=== PATIENT | male | born 1975 | race Caucasian/White ===

== ENCOUNTER 2020-12-13 12:08 | Inpatient (IN) | payer OTHER, MEDICAID, SELFPAY ==
[2020-12-13] VITALS (37 sets, daily range): BP systolic 119–176; BP diastolic 70–111; PULSE 62–90; RESP 16–38; TEMP 36.2–37.9; O2SAT 92–98; BMI 19.4
--- NOTE | 2020-12-13 12:14 | DI.RAD.S_ITS ---
PROCEDURE: XR CHEST 1V INDICATIONS: chest pain TECHNIQUE: One view of the chest was acquired. COMPARISON: None. FINDINGS: Surgical changes and devices: None. Lungs and pleura: Large right-sided pneumothorax. There is slight shift of the mediastinum to left. Mediastinum: Mediastinal contours appear normal. Heart size is normal. Bones and chest wall: No suspicious bony lesions. Overlying soft tissues appear unremarkable. IMPRESSION: Large right-sided pneumothorax with slight shift of the mediastinum to the left concerning for pneumothorax under tension. Findings discussed with Dr. Vizcarra on December 13, 2020 at 1311 hours. Dictated by: Eileen Hernandez MD, PhD on 12/13/2020 at 13:11 Approved by: Eileen Hernandez MD, PhD on 12/13/2020 at 13:14
[2020-12-13 12:49] LABS: Add Manual Diff / Slide Review NO; Basophils Absolute Auto 0 /uL (0-100); Basophils Percent Auto 0.2 % (0-2); Eosinophils Absolute Auto 0 /uL (0-450); Eosinophils Percent Auto 0.2 % (2-4); Hematocrit 44.2 % (41-53); Hemoglobin 15.1 g/dL (13.5-17.5); Lymphocytes Absolute Auto 1600 /uL (1100-4500); Lymphocytes Percent Auto 11.6 % (25-40); Mean Corpuscular HGB Conc 34.2 % (30-36); Mean Corpuscular Hemoglobin 31.1 PG (26-34); Mean Corpuscular Volume 90.9 fL (80-100); Monocytes Absolute Auto 1000 /uL (0-900); Neutrophils Absolute Auto 11300 /uL (1500-7000); Platelet Count 311 X10^3/uL (150-400); Red Blood Cell Count 4.86 X10^6/uL (4.5-5.9); Red Cell Distribution Width 13.4 % (11.6-14.8)
[2020-12-13 12:56] LABS: Prothrombin Time 11.9 SECONDS (10.1-12.7)
[2020-12-13 12:59] LABS: PTT Partial Thromboplastin Tim 30 SECONDS (26.4-36.2)
--- NOTE | 2020-12-13 13:02 | ED.CHESTPAIN ---
HPI - Chest Pain General Chief Complaint: Chest Pain Stated Complaint: Feels like someone is standing on chest Time Seen by Provider: 12/13/20 12:26 Source: patient Mode of arrival: Ambulatory Limitations: no limitations History of Present Illness HPI narrative: Patient is a 45-year-old male who presents with chest pain. He says actually started yesterday he vapes on a regular basis he was vaping yesterday around 1:00 p.m. when he coughed pretty hard and instantly had a severe chest pain. He was able to calm himself down he went to sleep with his hands on his sternum and woke up still with pain at which point he decided to come to the ER for evaluation. He denies any dizziness or lightheadedness he is having some shortness of breath but while sitting in the emergency department overall feels better. Related Data Home Medications Medication Instructions Recorded Confirmed No Known Home Medications 12/13/20 12/13/20 Allergies Allergy/AdvReac Type Severity Reaction Status Date / Time Penicillins Allergy Verified 12/13/20 12:21 Review of Systems Review of Systems ROS Unobtainable: All systems reviewed & are unremarkable except as noted in HPI and below Constitutional Constitutional: Denies chills, Denies fever(s), Denies lethargy and Denies weakness Cardiovascular Cardiovascular: Reports as per HPI, Reports chest pain, Denies syncope, Denies dyspnea and Denies dyspnea on exertion Respiratory Respiratory: Denies cough, Denies dyspnea, Denies dyspnea on exertion and Denies wheezing Gastrointestinal Gastrointestinal: Denies abdominal pain, Denies change in bowel habits, Denies diarrhea, Denies nausea and Denies vomiting Musculoskeletal Musculoskeletal: Denies back pain, Denies myalgias and Denies arthralgias Integumentary/Breasts Skin/Breast: Denies pruritus, Denies erythema, Denies rash and Denies wounds Neurologic Neurologic: Denies syncope and Denies weakness Allergic/Immunologic Allergic/Immunologic: Denies wheezing Patient History Medical History Vapes nicotine containing substance Social History household members: family Smoking Status: Current every day smoker Smoking Status: Current every day smoker tobacco type: vaping alcohol intake frequency: 0-2 drinks per day Substance Use Type: does not use Exam Initial Vital Signs Initial Vital Signs: Vital Signs Temperature 97.2 F L 12/13/20 12:10 Pulse Rate 90 12/13/20 12:10 Respiratory Rate 16 12/13/20 12:10 Blood Pressure 171/111 H 12/13/20 12:10 Pulse Oximetry 94 12/13/20 12:10 GENERAL: Thin male and in no acute distress. HEENT: Head atraumatic,EOMI, pupils reactive, face symmetric, moist mucous membranes CARDIOVASCULAR: Regular rate and rhythm without murmurs, rubs or gallops. RESPIRATORY: Decreased breath sounds on right no respiratory distress speaks in full sentences bilaterally ABDOMEN: Soft, nontender. Normoactive bowel sounds all 4 quadrants. No guarding or rebound. EXTREMITIES: Normal range of motion, no clubbing or edema. Neurovascularly intact NEUROLOGICAL: Alert and oriented x4.Normal gait and speech. Cranial nerves II through XII grossly intact. SKIN: Warm, dry, no laceration, no petechiae, no rashes or lesions. Procedures Chest Tube Chest Tube 1: Chest Tube Location: right Size of Tube (cm): 28 Chest Tube Prep: Yes sterile drapes applied and other Local Anesthetic: lidocaine 1% and with epi Amount of anesthesia used (mL): 10 Incision Made With: #11 blade Post Procedure: sutured to skin Tube Drainage: none Amount of initial drainage (mL): 0 Post Procedure CXR?: Yes Patient Tolerated Procedure: Yes Procedural Sedation Consent signed: Yes Time out performed: Yes Indication: other (chest tube) Preparation: court monitor applied, pulse oximeter, capnometry used and supplemental O2 applied IV Propofol dose (mg): 90 Intraservice time/total sedation time (min): 20 ED Sedation Level: Moderate (Concious) Patient Tolerated Procedure: Well Complications: none Course Orders Ordered: ED Orders 12/13/20 12:14 XR chest 1V Stat 12/13/20 12:19 EKG-12 Lead Stat 12/13/20 12:35 Complete Blood Count AUTO DIFF Stat Comprehensive Metabolic Panel Stat Lipase Stat Partial Thromboplastin Time Stat Prothrombin Time INR Stat Troponin & CK Cardiac Panel Stat 12/13/20 12:56 COVID19 Stat 12/13/20 13:32 XR chest 1V Stat Acetaminophen (Acetaminophen 325 Mg Tablet) 650 mg PO Q6HR DAWIT Diphenhydramine HCl (Diphenhydramine 50 Mg/Ml Vial) 25 mg IV Q6HR PRN PRN Reason: Itching Docusate Sodium (Docusate 100 Mg Capsule) 100 mg PO BID PRN PRN Reason: Constipation Enoxaparin Sodium (Enoxaparin 40 Mg/0.4 Ml Syringe) 40 mg SUBCUT DAILY [facility] Ketorolac Tromethamine (Ketorolac 30 Mg/Ml Vial) 30 mg IV Q6HR PRN PRN Reason: Pain, Moderate (4-6) Stop: 12/18/20 14:03 Naloxone HCl (Naloxone 0.4 Mg/Ml Vial) 0.2 mg IV Q2MIN PRN PRN Reason: Opiate Reversal Nicotine (Nicotine 21 Mg Patch) 21 mg TOP DAILY [facility] Ondansetron HCl (Ondansetron 4 Mg/2 Ml Inj) 4 mg IV Q4HR PRN PRN Reason: Nausea And Vomiting Oxycodone HCl (Oxycodone Ir 5 Mg Tablet) 5 mg PO Q6HR PRN PRN Reason: Pain, Moderate (4-6) Sennosides (Sennosides 8.6 Mg Tablet) 17.2 mg PO DAILY DAWIT Discontinued Medications Hydromorphone HCl (Hydromorphone 0.5 Mg Inj) 0.5 mg IV NOW ONE Stop: 12/13/20 13:58 Last Admin: 12/13/20 13:58 Dose: 0.5 mg Documented by: CASPER Sodium Chloride (Normal Saline 0.9%) 1,000 mls @ 150 mls/hr IV BOLUS ONE Stop: 12/13/20 19:47 Last Infusion: 12/13/20 14:50 Dose: 150 mls/hr Documented by: Admin: 12/13/20 13:15 Dose: 150 mls/hr Documented by: CASPER Ketorolac Tromethamine (Ketorolac 60 Mg/2 Ml Vial) 30 mg IV NOW ONE Stop: 12/13/20 14:15 Last Admin: 12/13/20 14:25 Dose: 30 mg Documented by: CASPER Propofol (Propofol 200 Mg/20 Ml Vial) 65 mg 1 mg/kg (65 mg) IV NOW ONE Stop: 12/13/20 13:01 Last Admin: 12/13/20 13:21 Dose: 65 mg Documented by: CASPER Vital Signs Vital signs: Vital Signs - 8 hr 12/13/20 12:10 12/13/20 12:25 12/13/20 12:30 Temperature 97.2 F L Pulse Rate 90 83 75 Respiratory Rate 16 31 H Blood Pressure 171/111 H 164/102 H 170/91 H Pulse Oximetry 94 94 93 12/13/20 12:35 12/13/20 12:40 12/13/20 12:45 Temperature Pulse Rate 79 84 75 Respiratory Rate 28 H 32 H 32 H Blood Pressure Pulse Oximetry 93 94 95 12/13/20 12:50 12/13/20 12:55 12/13/20 13:00 Temperature Pulse Rate 80 83 79 Respiratory Rate 28 H 38 H 33 H Blood Pressure Pulse Oximetry 94 95 93 12/13/20 13:02 12/13/20 13:05 12/13/20 13:10 Temperature Pulse Rate 84 78 82 Respiratory Rate 30 H 31 H 29 H Blood Pressure 166/105 H Pulse Oximetry 94 94 93 12/13/20 13:15 12/13/20 13:16 12/13/20 13:20 Temperature Pulse Rate 79 81 81 Respiratory Rate 25 H 28 H 33 H Blood Pressure 176/111 H 166/102 H Pulse Oximetry 93 93 94 12/13/20 13:25 12/13/20 13:30 12/13/20 13:31 Temperature Pulse Rate 85 76 74 Respiratory Rate 25 H 36 H 33 H Blood Pressure 168/81 H 133/89 Pulse Oximetry 93 97 95 12/13/20 13:35 12/13/20 13:36 12/13/20 13:40 Temperature Pulse Rate 65 62 70 Respiratory Rate 30 H 32 H 28 H Blood Pressure 119/70 138/79 Pulse Oximetry 96 95 93 12/13/20 13:45 12/13/20 13:50 Temperature Pulse Rate 71 71 Respiratory Rate 36 H 37 H Blood Pressure 151/87 H 147/94 H Pulse Oximetry 94 92 MDM - Chest Pain Lab Data Attestation: I reviewed the patient's lab results. Result diagrams: 12/13/20 12:35 12/13/20 12:35 Labs: Lab Results 12/13/20 12/13/20 12/13/20 Range/Units 12:35 12:35 12:35 WBC 14.0 H (4.5-11.0) X10^3/uL RBC 4.86 (4.5-5.9) X10^6/uL Hgb 15.1 (13.5-17.5) g/dL Hct 44.2 (41-53) % MCV 90.9 (80-100) fL MCH 31.1 (26-34) PG MCHC 34.2 (30-36) % RDW 13.4 (11.6-14.8) % Plt Count 311 (150-400) X10^3/uL Neut % (Auto) 81.0 H (50-75) % Lymph % (Auto) 11.6 L (25-40) % [place] % (Auto) 7.0 (3-14) % Eos % (Auto) 0.2 L (2-4) % Baso % (Auto) 0.2 (0-2) % Neut # (Auto) 19481 H (9947-2472) /uL Lymph # (Auto) 1600 (1874-5601) /uL [place] # (Auto) 1000 H (0-900) /uL Eos # (Auto) 0 (0-450) /uL Baso # (Auto) 0 (0-100) /uL PT 11.9 (10.1-12.7) SECONDS INR 1.0 (0.9-1.3) APTT 30 (26.4-36.2) SECONDS Sodium 137 (137-145) mmol/L Potassium 3.9 (3.4-5.1) mmol/L Chloride 105 (98-107) mmol/L Carbon Dioxide 22 (22-32) mmol/L BUN 13 (9-20) mg/dL Creatinine 0.74 (0.66-1.25) mg/dL Estimated GFR > 60.0 (>60) mL/min BUN/Creatinine Ratio 17.6 (6-22) Glucose 109 H (70-100) mg/dL Calcium 9.5 (8.4-10.2) mg/dL Total Bilirubin 0.5 (0.2-1.3) mg/dL AST 23 (17-59) IU/L ALT 15 (<50) IU/L Alkaline Phosphatase 78 (38-126) U/L Total Creatine Kinase 151 (55-170) U/L CK-MB (CK-2) 2.17 (<2.37) ng/mL CK-MB (CK-2) Rel Index 1.4 L (1.5-5.0) % Troponin I < 0.012 (0.01-0.034) ng/mL Total Protein 7.7 (6.3-8.2) g/dL Albumin 4.7 (3.5-5.0) g/dL Globulin 3.0 (1.7-4.1) g/dL Albumin/Globulin Ratio 1.6 (1.0-2.8) Lipase 21 L (23-300) U/L SARS-CoV-2 (PCR) (Negative) 12/13/20 Range/Units 12:56 WBC (4.5-11.0) X10^3/uL RBC (4.5-5.9) X10^6/uL Hgb (13.5-17.5) g/dL Hct (41-53) % MCV (80-100) fL MCH (26-34) PG MCHC (30-36) % RDW (11.6-14.8) % Plt Count (150-400) X10^3/uL Neut % (Auto) (50-75) % Lymph % (Auto) (25-40) % [place] % (Auto) (3-14) % Eos % (Auto) (2-4) % Baso % (Auto) (0-2) % Neut # (Auto) (2562-0926) /uL Lymph # (Auto) (2439-4163) /uL [place] # (Auto) (0-900) /uL Eos # (Auto) (0-450) /uL Baso # (Auto) (0-100) /uL PT (10.1-12.7) SECONDS INR (0.9-1.3) APTT (26.4-36.2) SECONDS Sodium (137-145) mmol/L Potassium (3.4-5.1) mmol/L Chloride (98-107) mmol/L Carbon Dioxide (22-32) mmol/L BUN (9-20) mg/dL Creatinine (0.66-1.25) mg/dL Estimated GFR (>60) mL/min BUN/Creatinine Ratio (6-22) Glucose (70-100) mg/dL Calcium (8.4-10.2) mg/dL Total Bilirubin (0.2-1.3) mg/dL AST (17-59) IU/L ALT (<50) IU/L Alkaline Phosphatase (38-126) U/L Total Creatine Kinase (55-170) U/L CK-MB (CK-2) (<2.37) ng/mL CK-MB (CK-2) Rel Index (1.5-5.0) % Troponin I (0.01-0.034) ng/mL Total Protein (6.3-8.2) g/dL Albumin (3.5-5.0) g/dL Globulin (1.7-4.1) g/dL Albumin/Globulin Ratio (1.0-2.8) Lipase (23-300) U/L SARS-CoV-2 (PCR) Negative (Negative) Imaging Data Chest x-ray: Radiologist's Impression: PROCEDURE: XR CHEST 1V INDICATIONS: chest pain TECHNIQUE: One view of the chest was acquired. COMPARISON: None. FINDINGS: Surgical changes and devices: None. Lungs and pleura: Large right-sided pneumothorax. There is slight shift of the mediastinum to left. Mediastinum: Mediastinal contours appear normal. Heart size is normal. Bones and chest wall: No suspicious bony lesions. Overlying soft tissues appear unremarkable. IMPRESSION: Large right-sided pneumothorax with slight shift of the mediastinum to the left concerning for pneumothorax under tension. Findings discussed with Dr. Vizcarra on December 13, 2020 at 1311 hours. Dictated by: Eileen Hernandez MD, PhD on 12/13/2020 at 13:11 Chest x-ray 2. : Radiologist's Impression: PROCEDURE: XR CHEST 1V INDICATIONS: post chest tube TECHNIQUE: One view of the chest was acquired. COMPARISON: [facility], XR CHEST 1V, 12/13/2020, 12:42. FINDINGS: Surgical changes and devices: None. Lungs and pleura: There is a large right pneumothorax with near complete collapse of the right lung. No findings of tension. The left lung and pleural space are clear. Mediastinum: Mediastinal structures are at midline in their appropriate position with no evidence of shift. Heart size is normal. Bones and chest wall: No suspicious bony lesions. Overlying soft tissues appear unremarkable. IMPRESSION: Large right pneumothorax with no evidence of tension currently. Dictated by: Andre Tran M.D. on 12/13/2020 at 13:45 ECG Data Attestation: I personally reviewed and interpreted this ECG as follows: Prior ECG tracings: not available for review Interpretation: Sinus rhythm rate 74T-wave inversion noted in lead [address] changes computer states that arm leads were reversed P-wave inversions are noted in lead 1 and aVL as well respiratory therapist states that he double checked and they are not reversed. MDM Narrative Medical decision making narrative: The patient is found to have spontaneous large right-sided pneumothorax. At procedure sedation and chest tube placed with full resolution. Patient is complaining of some discomfort at the chest tube site but chest tube remains in place. Dr. Salas updated patient's symptoms test results and agrees with admission. Discharge Plan Departure Patient Disposition: Admitted As Inpatient Clinical Impression: Pneumothorax Qualifiers: Pneumothorax type: spontaneous, primary Qualified Code(s): J93.11 - Primary spontaneous pneumothorax Admit Date/Time: 12/13/20 13:54 Admit Provider: Tanna Lambert
[2020-12-13 13:05] LABS: Alanine Aminotransferase 15 IU/L (<50); Albumin 4.7 g/dL (3.5-5.0); Albumin Globulin Ratio 1.6 (1.0-2.8); Alkaline Phosphatase 78 U/L (38-126); Aspartate Aminotransferase 23 IU/L (17-59); BUN Creatinine Ratio 17.6 (6-22); Bilirubin Total 0.5 mg/dL (0.2-1.3); Blood Urea Nitrogen 13 mg/dL (9-20); Calcium 9.5 mg/dL (8.4-10.2); Carbon Dioxide 22 mmol/L (22-32); Chloride 105 mmol/L (98-107); Creatine Kinase 151 U/L (55-170); Estimated Glomerular Filt Rate > 60.0 mL/min (>60); Glucose 109 mg/dL (70-100); HEMOLYSIS < 15 (0-50); Lipase 21 U/L (23-300); Potassium 3.9 mmol/L (3.4-5.1); Sodium 137 mmol/L (137-145); Total Protein 7.7 g/dL (6.3-8.2)
[2020-12-13 13:15] LABS: Troponin I < 0.012 ng/mL (0.01-0.034)
[2020-12-13] MEDS: SODIUM CHLORIDE 0.9% 1,000 ML 150 ML IV (13:15)
[2020-12-13 13:19] LABS: COVID19 -Nasal RAPID Negative (Negative)
[2020-12-13 13:20] LABS: CKMB % Relative Index 1.4 % (1.5-5.0); Creatine Kinase MB 2.17 ng/mL (<2.37)
[2020-12-13] MEDS: propofoL 200 MG/20 ML VIAL 65 MG IV (13:21)
[2020-12-13] MEDS: LIDOCAINE 1% W/EPI 30 ML (13:25)
--- NOTE | 2020-12-13 13:32 | DI.RAD.S_ITS ---
PROCEDURE: XR CHEST 1V INDICATIONS: post chest tube TECHNIQUE: One view of the chest was acquired. COMPARISON: [facility], CR, XR CHEST 1V, 12/13/2020, 12:42. FINDINGS: Surgical changes and devices: None. Lungs and pleura: There is a large right pneumothorax with near complete collapse of the right lung. No findings of tension. The left lung and pleural space are clear. Mediastinum: Mediastinal structures are at midline in their appropriate position with no evidence of shift. Heart size is normal. Bones and chest wall: No suspicious bony lesions. Overlying soft tissues appear unremarkable. IMPRESSION: Large right pneumothorax with no evidence of tension currently. Dictated by: Andre Tran M.D. on 12/13/2020 at 13:45 Approved by: Andre Tran M.D. on 12/13/2020 at 13:46
[2020-12-13] MEDS: HYDROMORPHONE 0.5 MG INJ (13:35)
[2020-12-13] MEDS: HYDROMORPHONE 0.5 MG INJ IV (13:58)
[2020-12-13] MEDS: KETOROLAC 60 MG/2 ML VIAL 30 MG IV (14:25)
[2020-12-13] MEDS: ACETAMINOPHEN 325 MG TABLET 650 MG PO (18:59)
[2020-12-13] MEDS: NICOTINE 21 MG PATCH TOP (19:00)
--- NOTE | 2020-12-13 20:10 | PC.NURSE ---
Critical care time related to procedural sedation and chest tube placement.
[2020-12-13] MEDS: OXYCODONE IR 5 MG TABLET PO (21:19)
[2020-12-14] MEDS: ACETAMINOPHEN 325 MG TABLET 650 MG PO ×5 (00:12→23:41)
[2020-12-14 03:21] VITALS: BP 126/63; PULSE 56; RESP 18; TEMP 36.9; O2SAT 99
[2020-12-14] MEDS: OXYCODONE IR 5 MG TABLET PO ×2 (06:24→13:26)
[2020-12-14 08:33] VITALS: BP 132/92; PULSE 62; RESP 18; TEMP 37.2; O2SAT 96
--- NOTE | 2020-12-14 08:52 | P.HP_ITS ---
History of Present Illness History of Present Illness Date Patient Seen: 12/14/20 Time Patient Seen: 08:52 Chief complaint: Feels like someone is standing on chest Narrative: This is a 45-year-old man who presented tot he ER with chest pain last night. He is an active everyday smoker and vaper. He says the pain started on Friday. He reports that he vapes on a regular basis he was vaping Friday around 1:00 p.m. when he coughed hard and suddenly had a severe chest pain. He reports that he was able to calm himself down he went to sleep with his hands on his sternum and woke up still with pain at which point he decided to come to the ER for evaluation. In the ER he was found to have a large pneumothorax on the right, and a chest tube was placed, with reinflation of the lung. Overnight, he has been weaned off of oxygen, and has required minimal yue n medication. He feels like his breathing is much better, and his chest pain has basically resolved, with the exception of pain at the chest tube insertion site. He has a nicotine patch, and denies any desire for cigarette at this point ROS: Constitutional: Denies chills, Denies fever(s), Denies lethargy and Denies weakness Cardiovascular: Reports as per HPI, Reports improved chest pain; reports pain at chest tube site, Denies syncope, Denies dyspnea and Denies dyspnea on exertion Respiratory: Denies cough, Denies dyspnea, Denies dyspnea on exertion and Denies wheezing Gastrointestinal: Denies abdominal pain, Denies change in bowel habits, Denies diarrhea, Denies nausea and Denies vomiting Musculoskeletal: Denies back pain, Denies myalgias and Denies arthralgias Skin/Breast: Denies pruritus, Denies erythema, Denies rash and Denies wounds Neurologic: Denies syncope and Denies weakness Allergic/Immunologic: Denies wheezing PE: GENERAL: Alert, comfortable. Appears stated age. Answers questions promptly and appropriately. Vital signs noted. HENT: Normocephalic, atraumatic. Hearing intact. EYES: Conjunctiva pink, sclera white, no periorbital swelling. CARDIOVASCULAR: Regular rate. No pedal edema. RESPIRATORY: Non-tachypneic, breathing comfortably on room air. Chest tube in place and secure without kinks, no sign of a leak, minimal tidaling on inspiration with suction off. GASTROINTESTINAL: Abdomen soft and non-distended GENITALURINARY: No flank tenderness. MUSCULOSKELETAL: Equal tone and mass bilaterally. SKIN: Warm, dry, soft, appropriate color for ethnicity. No other lesions, rashes, or wounds. NEURO: Alert and Oriented X 3. No gross sensory deficits, or cognitive issues. PSYCH: Appropriate affect and mood. Patient History Medical History Vapes nicotine containing substance Family & Social History Social History: household members family Prior Living Arrangements House Safety & Behavioral: Feels Safe in Current Yes Environment Been Physically Hurt or No Threatened By a Person Suicidal Ideation Description None Tobacco & Substance use: Tobacco type cigarettes,e-cigarettes Smoking Status Current every day smoker Smoking packs per day 0.5 alcohol intake frequency holiday/special occasion Substance Use Type does not use Meds Home Medications and Allergies Home Medications Medication Instructions Recorded Confirmed Type No Known Home Medications 12/13/20 12/13/20 History Allergies Allergy/AdvReac Type Severity Reaction Status Date / Time Penicillins Allergy Verified 12/13/20 12:21 Exam Vital Signs (past 8 hours): - 12/14/20 03:21 Temperature 98.5 F Pulse Rate 56 L Respiratory Rate 18 Blood Pressure 126/63 Pulse Oximetry 99 Oxygen Delivery Method Nasal Cannula Oxygen Flow Rate 0 Objective Imaging Chest x-ray: Radiologist's impression: Chest x-ray: Radiologist's Impression: PROCEDURE: XR CHEST 1V INDICATIONS: chest pain TECHNIQUE: One view of the chest was acquired. COMPARISON: None. FINDINGS: Surgical changes and devices: None. Lungs and pleura: Large right-sided pneumothorax. There is slight shift of the mediastinum to left. Mediastinum: Mediastinal contours appear normal. Heart size is normal. Bones and chest wall: No suspicious bony lesions. Overlying soft tissues appear unremarkable. IMPRESSION: Large right-sided pneumothorax with slight shift of the mediastinum to the left concerning for pneumothorax under tension. Findings discussed with Dr. Vizcarra on December 13, 2020 at 1311 hours. Dictated by: Eileen Hernandez MD, PhD on 12/13/2020 at 13:11 Chest x-ray 2. : Radiologist's Impression: PROCEDURE: XR CHEST 1V INDICATIONS: post chest tube TECHNIQUE: One view of the chest was acquired. [facility], 12/13/2020, 12:42. FINDINGS: Surgical changes and devices: None. Lungs and pleura: There is a large right pneumothorax with near complete collapse of the right lung. No findings of tension. The left lung and pleural space are clear. Mediastinum: Mediastinal structures are at midline in their appropriate position with no evidence of shift. Heart size is normal. Bones and chest wall: No suspicious bony lesions. Overlying soft tissues appear unremarkable. IMPRESSION: Large right pneumothorax with no evidence of tension currently. Dictated by: Andre Tran M.D. on 12/13/2020 at 13:45 ECG Data Attestation: I personally reviewed and interpreted this ECG as follows: Prior ECG tracings: not available for review Interpretation: Sinus rhythm rate 74T-wave inversion noted in lead [address] changes computer states that arm leads were reversed P-wave inversions are noted in lead 1 and aVL as well respiratory therapist states that he double checked and they are not reversed. Labs Result Diagrams: 12/13/20 12:35 12/13/20 12:35 Labs: Laboratory Results - last 24 hr 12/13/20 12/13/20 12/13/20 12:35 12:35 12:35 WBC 14.0 H RBC 4.86 Hgb 15.1 Hct 44.2 MCV 90.9 MCH 31.1 MCHC 34.2 RDW 13.4 Plt Count 311 Neut % (Auto) 81.0 H Lymph % (Auto) 11.6 L [place] % (Auto) 7.0 Eos % (Auto) 0.2 L Baso % (Auto) 0.2 Neut # (Auto) 89044 H Lymph # (Auto) 1600 [place] # (Auto) 1000 H Eos # (Auto) 0 Baso # (Auto) 0 PT 11.9 INR 1.0 APTT 30 Sodium 137 Potassium 3.9 Chloride 105 Carbon Dioxide 22 BUN 13 Creatinine 0.74 Estimated GFR > 60.0 BUN/Creatinine Ratio 17.6 Glucose 109 H Calcium 9.5 Total Bilirubin 0.5 AST 23 ALT 15 Alkaline Phosphatase 78 Total Creatine Kinase 151 CK-MB (CK-2) 2.17 CK-MB (CK-2) Rel Index 1.4 L Troponin I < 0.012 Total Protein 7.7 Albumin 4.7 Globulin 3.0 Albumin/Globulin Ratio 1.6 Lipase 21 L SARS-CoV-2 (PCR) 12/13/20 12:56 WBC RBC Hgb Hct MCV MCH MCHC RDW Plt Count Neut % (Auto) Lymph % (Auto) [place] % (Auto) Eos % (Auto) Baso % (Auto) Neut # (Auto) Lymph # (Auto) [place] # (Auto) Eos # (Auto) Baso # (Auto) PT INR APTT Sodium Potassium Chloride Carbon Dioxide BUN Creatinine Estimated GFR BUN/Creatinine Ratio Glucose Calcium Total Bilirubin AST ALT Alkaline Phosphatase Total Creatine Kinase CK-MB (CK-2) CK-MB (CK-2) Rel Index Troponin I Total Protein Albumin Globulin Albumin/Globulin Ratio Lipase SARS-CoV-2 (PCR) Negative Assessment & Plan Assessment and plan (1) Smoker: Status: Acute (2) Current every day nicotine vaping: Status: Acute (3) Spontaneous pneumothorax: Status: Acute Assessment & Plan narrative: 11 minutes were spent reviewing his imaging, and labs. 19 minutes were spent with the patient discussing his history, examining him, and evaluating his chest tube. This is a 45-year-old man who is here with a spontaneous pneumothorax. He has well placed chest tube, which seems to be functioning. His pain is well controlled, as well as his nicotine dependence. We will get a chest x-ray at the 24 hour fernando, which is 2 o'clock this afternoon, if the lung is well expanded, we will switch to water seal, and repeat a chest x-ray in 24 hours. I explained to the patient that he can take for 3 days to a week to get the lung to re-expand completely, and if we cannot get it to re-expand, he may need to be transferred for thoracic surgery evaluation and intervention. He is verbalizing understanding and agreement with this plan. Plan: Chest tube management as described above Incentive spirometry, ambulation as tolerated Regular diet Nicotine patch Pain meds as needed COVID-19 COVID-19 status: Negative Result date/Date tested (Pos, Neg/Pending): 12/13/20 Time Spent With Patient Time with patient: 25 - 35 minutes (30) Quality VTE Deep Vein Thrombosis/Pulmonary Embolism Present on Admission: No
[2020-12-14] MEDS: SENNOSIDES 8.6 MG TABLET 17.2 MG PO (08:59)
[2020-12-14] MEDS: NICOTINE 21 MG PATCH TOP (08:59)
[2020-12-14] MEDS: ENOXAPARIN 40 MG/0.4 ML SYRINGE SUBCUT (08:59)
[2020-12-14 11:27] VITALS: BP 147/99; PULSE 55; RESP 16; TEMP 37.6; O2SAT 94
--- NOTE | 2020-12-14 12:50 | CM.IDA ---
Initial DCP Assessment Note Pt is a 45 yo male, resident of [place], arrives to ED with a spontaneous pneumothorax, chest tube placed PCP: No PCP Listed Payer: [facility] RAFI Reviewed chart, met w/patient to introduce role and review DCP. Patient is indp and active at baseline, works as a boat welder and fitter. Patient admits he has been trying to quit smoking for quite some time, Nicoderm nicotine patch has worked in the past, although [facility] does not cover Nicoderm, and the generic version gives patient large skin blisters. Patient hopes to get a Rx for the Nicoderm patch upon DC- relayed this to RN. 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 No needs expected from DC planning team although will remain available in case this changes . SUE Holder Discharge Planning/Care Management CM Discharge Assessment Start: 12/14/20 12:48 Freq: Status: Active Protocol: Document 12/14/20 12:48 DANIE (Rec: 12/14/20 12:49 DANIE [id number]) Discharge Planning Assessment Assigned Traffic Court Magistrate SUE Preez DPOA/Assigned Designee Name family Mariaa Contact Information [phone] Advance Directives? No History Provided By Patient,Medical Record Prior Living Arrangements House Household Members family Type of transporation used prior to Drives own vehicle admit Willing to Return to Facility? No Independent with ADL's Yes Is patient alert and oriented? Yes Barriers to Discharge No Discharge Plan Home Transportation Arrangement family to transport Referrals Initiated None needed
--- NOTE | 2020-12-14 14:00 | DI.RAD.S_ITS ---
PROCEDURE: XR CHEST 1V INDICATIONS: pneumothorax; Interval change TECHNIQUE: One view of the chest was acquired. COMPARISON: [facility], CR, XR CHEST 1V, 12/13/2020, 13:36. [facility], CR, XR CHEST 1V, 12/13/2020, 12:42. FINDINGS: Surgical changes and devices: Chest tube has a vacuum weighted a large right-sided pneumothorax previously present earlier same day. No significant residual AP goal pneumothorax is seen. The lung parenchyma on the right appears mildly edematous, after re-expansion. Mild subcutaneous emphysema noted over the right chest wall.. Lungs and pleura: Lungs are clear. No pleural effusions or pneumothorax. Mediastinum: Mediastinal contours appear normal. Heart size is normal. Bones and chest wall: No suspicious bony lesions. Overlying soft tissues appear unremarkable. IMPRESSION: Maintenance of re-expansion of right lung, by chest tube within the right hemithorax placed earlier today. Resolution of mediastinal shift from right to left, mild post re-expansion alveolar edema noted within the right mid and lower lung. Mild subcutaneous emphysema. Dictated by: Naresh Gaona M.D. on 12/14/2020 at 14:32 Approved by: Naresh Gaona M.D. on 12/14/2020 at 14:33
[2020-12-14 15:50] VITALS: BP 141/89; PULSE 52; RESP 18; TEMP 36.9; O2SAT 97
[2020-12-14] MEDS: KETOROLAC 30 MG/ML VIAL IV ×2 (16:26→22:31)
[2020-12-14 17:50] VITALS: PULSE 69; RESP 16; O2SAT 97
[2020-12-14 19:28] VITALS: BP 142/97; PULSE 60; RESP 20; TEMP 36.4; O2SAT 98
--- NOTE | 2020-12-14 19:41 | PC.NURSE ---
Evening Shift Note- Patient called complaining of feeling hot. checked temp, 98.6 temp noted. Patient and I were unable to find nicotine patch that had been placed earlier today, Patch was replaced with new patch to left upper chest. Patient reports that approx 30 to 45 minutes later starting to feel a little lightheaded/dizzy, sweaty, and warm. Nicotine patch from yesterday was on patients left back shoulder area, that site today is red and raised and the size of the patch. Left upper arm site with light red patch shaped area. Removed patch to left upper chest and called bindery leadperson Dr. Navarrete. Orders given to D/c Nicotine patch.
[2020-12-15] VITALS (9 sets, daily range): BP systolic 134–160; BP diastolic 76–93; PULSE 50–66; RESP 16–20; TEMP 36.5–37.3; O2SAT 95–98
[2020-12-15] MEDS: ACETAMINOPHEN 325 MG TABLET 650 MG PO ×3 (05:48→17:03)
[2020-12-15 06:42] LABS: Add Manual Diff / Slide Review NO; Basophils Absolute Auto 0 /uL (0-100); Basophils Percent Auto 0.3 % (0-2); Eosinophils Absolute Auto 400 /uL (0-450); Eosinophils Percent Auto 3.2 % (2-4); Hematocrit 42.5 % (41-53); Hemoglobin 14.2 g/dL (13.5-17.5); Lymphocytes Absolute Auto 1900 /uL (1100-4500); Lymphocytes Percent Auto 14.4 % (25-40); Mean Corpuscular HGB Conc 33.3 % (30-36); Mean Corpuscular Hemoglobin 30.7 PG (26-34); Mean Corpuscular Volume 92.3 fL (80-100); Monocytes Absolute Auto 1000 /uL (0-900); Monocytes Percent Auto 7.7 % (3-14); Neutrophils Absolute Auto 10000 /uL (1500-7000); Neutrophils Percent Auto 74.4 % (50-75); Platelet Count 259 X10^3/uL (150-400); Red Blood Cell Count 4.61 X10^6/uL (4.5-5.9); Red Cell Distribution Width 13.3 % (11.6-14.8); White Blood Cell Count 13.5 X10^3/uL (4.5-11.0)
[2020-12-15] MEDS: KETOROLAC 30 MG/ML VIAL IV ×3 (07:56→21:56)
[2020-12-15] MEDS: ENOXAPARIN 40 MG/0.4 ML SYRINGE SUBCUT (10:05)
[2020-12-15] MEDS: SENNOSIDES 8.6 MG TABLET 17.2 MG PO (10:06)
--- NOTE | 2020-12-15 10:12 | PM.PN.1 ---
Subjective Subjective Date Patient Seen: 12/15/20 Time Patient Seen: 07:45 Interval history: No acute events over night. Pt denies CP, SOB. Minimal pain at chest tube site. Exam Vital Signs (past 8 hours): - 12/15/20 04:00 12/15/20 08:00 12/15/20 09:14 Temperature 98.6 F 97.7 F Pulse Rate 50 L 58 L 66 Respiratory Rate 16 19 Blood Pressure 134/84 140/76 Pulse Oximetry 98 97 97 Oxygen Delivery Method Room Air Oxygen Flow Rate 0 Narrative Exam Narrative: GENERAL: Alert, comfortable. Answers questions promptly and appropriately. Vital signs noted. HENT: Normocephalic, atraumatic. Hearing intact. EYES: Conjunctiva pink, sclera white, no periorbital swelling. CARDIOVASCULAR: Regular rate. No pedal edema. RESPIRATORY: Non-tachypneic, breathing comfortably on room air. Chest tube in place and tidaling. No apparent leak. Taken off of wall suction during exam. GASTROINTESTINAL: Abdomen soft and non-distended GENITALURINARY: No flank tenderness. MUSCULOSKELETAL: Equal tone and mass bilaterally. SKIN: Warm, dry, soft, appropriate color for ethnicity. No other lesions, rashes, or wounds. NEURO: Alert and Oriented X 3. No gross sensory deficits, or cognitive issues. PSYCH: Appropriate affect and mood. Objective Imaging Chest x-ray: Radiologist's impression: [address] [id number] ReportSigned Patient: Bob Christopher AMR#: [id number]: [id number]:[id number]/Sex: 45 / MDate of Service: 12/14/20Loc: [id number] Number: [id number] Procedure: XR chest 1V Ordering Provider: Tanna Lambert MD PROCEDURE: XR CHEST 1V INDICATIONS: pneumothorax; Interval change TECHNIQUE: One view of the chest was acquired. COMPARISON: [facility], CR, XR CHEST 1V, 12/13/2020, 13:36. [facility], CR, XR CHEST 1V, 12/13/2020, 12:42. FINDINGS: Surgical changes and devices: Chest tube has a vacuum weighted a large right-sided pneumothorax previously present earlier same day. No significant residual AP goal pneumothorax is seen. The lung parenchyma on the right appears mildly edematous, after re-expansion. Mild subcutaneous emphysema noted over the right chest wall.. Lungs and pleura: Lungs are clear. No pleural effusions or pneumothorax. Mediastinum: Mediastinal contours appear normal. Heart size is normal. Bones and chest wall: No suspicious bony lesions. Overlying soft tissues appear unremarkable. IMPRESSION: Maintenance of re-expansion of right lung, by chest tube within the right hemithorax placed earlier today. Resolution of mediastinal shift from right to left, mild post re-expansion alveolar edema noted within the right mid and lower lung. Mild subcutaneous emphysema. Dictated by: Naresh Gaona M.D. on 12/14/2020 at 14:32 Approved by: Naresh Gaona M.D. on 12/14/2020 at 14:33 Labs Result Diagrams: 12/15/20 06:35 12/13/20 12:35 Labs: Laboratory Results - last 24 hr 12/15/20 06:35 WBC 13.5 H RBC 4.61 Hgb 14.2 Hct 42.5 MCV 92.3 MCH 30.7 MCHC 33.3 RDW 13.3 Plt Count 259 Neut % (Auto) 74.4 Lymph % (Auto) 14.4 L [place] % (Auto) 7.7 Eos % (Auto) 3.2 Baso % (Auto) 0.3 Neut # (Auto) 59239 H Lymph # (Auto) 1900 [place] # (Auto) 1000 H Eos # (Auto) 400 Baso # (Auto) 0 PFSH Medical History Vapes nicotine containing substance Social History household members: family Smoking Status: Current every day smoker Assessment & Plan Assessment and plan (1) Spontaneous pneumothorax: Status: Acute (2) Current every day nicotine vaping: Status: Acute (3) Smoker: Status: Acute Assessment & Plan narrative: 4 minutes were spent reviewing his imaging, and labs. 13 minutes were spent with the patient discussing his history, examining him, and evaluating his chest tube. 6 minutes were spent discussing his case with his nurse. This is a 45-year-old man who is here with a spontaneous pneumothorax. He has well placed chest tube, which seems to be functioning. His pain is well controlled, as well as his nicotine dependence. We put his chest tube to water seal this morning, and will get a chest x-ray this afternoon around 2:00 p.m.. If no pneumothorax has developed, we will consider clamping the tube, and possibly removing it tomorrow. Plan: Chest tube to water seal Will get stat chest x-ray, before putting the chest tube back to suction if the patient desats or develops chest pain Chest x-ray at 2:00 p.m. Consider clamping the chest tube tomorrow, and possibly removing it tomorrow or Friday if all continues to go well COVID-19 COVID-19 status: Negative Result date/Date tested (Pos, Neg/Pending): 12/13/20 Time Spent With Patient Time with patient: 15-24 minutes (23) Quality VTE Deep Vein Thrombosis/Pulmonary Embolism Present on Admission: No
[2020-12-15] MEDS: NICOTINE 21 MG PATCH TOP (12:16)
--- NOTE | 2020-12-15 12:24 | PC.NURSE ---
Addendum entered by Ana Couch R.N. 12/15/20 15:04: Around 1400 pt coughed and Jackie water compartment started bubbling. Luckily CXR was ordered for 1400 and obtained successful image. Dr. Lambert called to inform nursing staff that pt has a small pneumothorax still and will need to be placed on suction again. pt made aware. I will give Lauren report and place pt on suction. -20cm h20, continuous suction on medium to high. Original Note: AM Shift. pt AO and receptive to care. Ambulating IND in room and hallways. Right chest tube clamped with hemostat and orders state to stay dry, gauze CDI. Lungs sound clear and diminished, mild pain controlled with toradol. Left forearm PIV flushing. pt experiencing hot flashes which he thinks are d/t lack of nicotine. pt had 21mg nicotine patch ordered yesterday but DC'ed d/t rash and flushing. pt asked for another patch today. I called Dr. Lambert's team which she then prescribed a patch, but 21mg. The patient request to place the pack to curve his current cravings and to call back to request a lower dose. I called the team and have requested 14mg.
--- NOTE | 2020-12-15 12:29 | PC.NURSE ---
Nicotine patch. pt reporting s/s of nicotine withdrawal around 1030 this shift (pt typically vapes during the day). pt had Nicoderm patch on yesterday and it was removed on evening shift due to skin irritation and flushing. pt request a new patch today in hopes it will ease his cravings and hot flashes. I called Dr. Lambert's team and requested a patch, Dr. Lambert prescribed another 21mg patch. pt asking for a lower dose of 14mg. I called Dr. Lambert's team again and the nurse stated that she will send the message on.
[2020-12-15] MEDS: NICOTINE 14 PATCH 14 MG TOP (13:37)
--- NOTE | 2020-12-15 14:00 | DI.RAD.S_ITS ---
PROCEDURE: XR CHEST 1V INDICATIONS: interval change pneumothorax TECHNIQUE: One view of the chest was acquired. COMPARISON: [facility], CR, XR CHEST 1V, 12/14/2020, 13:56. FINDINGS: Surgical changes and devices: Right-sided chest tube position is unchanged. Lungs and pleura: Persistent small right apical pneumothorax is seen slightly increased in size compared to previous study. Extensive bullous disease in right upper lung field is again noted. No left-sided pneumothorax. Mediastinum: Mediastinal contours appear normal. Heart size is normal. Bones and chest wall: No suspicious bony lesions. Extensive right-sided subcutaneous emphysema is seen unchanged from previous day. IMPRESSION: Interval slight increase in size of patient's known right apical pneumothorax. Persistent severe bullous disease in right upper lung field. No left-sided pneumothorax. Dictated by: Jadiel Bishop M.D. on 12/15/2020 at 13:45 Approved by: Jadiel Bishop M.D. on 12/15/2020 at 13:46
[2020-12-16] VITALS (7 sets, daily range): BP systolic 123–154; BP diastolic 78–94; PULSE 52–67; RESP 18–20; TEMP 36.4–37.2; O2SAT 97–99
[2020-12-16] MEDS: ACETAMINOPHEN 325 MG TABLET 650 MG PO ×5 (00:16→23:44)
[2020-12-16 05:29] LABS: Add Manual Diff / Slide Review NO; Basophils Absolute Auto 100 /uL (0-100); Basophils Percent Auto 0.5 % (0-2); Eosinophils Absolute Auto 600 /uL (0-450); Eosinophils Percent Auto 4.3 % (2-4); Hematocrit 40.7 % (41-53); Hemoglobin 13.9 g/dL (13.5-17.5); Lymphocytes Absolute Auto 1600 /uL (1100-4500); Lymphocytes Percent Auto 11.7 % (25-40); Mean Corpuscular HGB Conc 34.1 % (30-36); Mean Corpuscular Volume 90.9 fL (80-100); Monocytes Absolute Auto 800 /uL (0-900); Monocytes Percent Auto 6.1 % (3-14); Neutrophils Absolute Auto 10500 /uL (1500-7000); Neutrophils Percent Auto 77.4 % (50-75); Platelet Count 260 X10^3/uL (150-400); Red Blood Cell Count 4.48 X10^6/uL (4.5-5.9); Red Cell Distribution Width 12.9 % (11.6-14.8); White Blood Cell Count 13.5 X10^3/uL (4.5-11.0)
--- NOTE | 2020-12-16 07:00 | DI.RAD.S_ITS ---
PROCEDURE: XR CHEST 1V INDICATIONS: chest tube, pneumothorax TECHNIQUE: One view of the chest was acquired. COMPARISON: [facility], CR, XR CHEST 1V, 12/13/2020, 13:36. [facility], CR, XR CHEST 1V, 12/13/2020, 12:42. [facility], CR, XR CHEST 1V, 12/14/2020, 13:56. [facility], CR, XR CHEST 1V, 12/15/2020, 14:21. FINDINGS: Surgical changes and devices: Unchanged alignment of right sided chest tube. Lungs and pleura: Persistent right apical pneumothorax not significantly changed from most recent examination. Extensive bullous disease within the right lung is again visualized. No left-sided pneumothorax. Slightly decreased right mid lung opacity. No significant pleural effusion. Mediastinum: Mediastinal contours appear normal. Heart size is normal. Bones and chest wall: No suspicious bony lesions. No significant change in extensive right-sided subcutaneous emphysema. IMPRESSION: No significant change in right apical pneumothorax. Unchanged alignment of right-sided chest tube. Slightly decreased right mid lung opacity. Dictated by: Dwayne Fontanez D.O. on 12/16/2020 at 7:16 Approved by: Dwayne Fontanez D.O. on 12/16/2020 at 7:19
[2020-12-16] MEDS: SENNOSIDES 8.6 MG TABLET 17.2 MG PO (09:32)
[2020-12-16] MEDS: KETOROLAC 30 MG/ML VIAL IV ×3 (09:33→23:49)
[2020-12-16] MEDS: ENOXAPARIN 40 MG/0.4 ML SYRINGE SUBCUT (09:33)
[2020-12-16] MEDS: NICOTINE 14 PATCH 14 MG TOP (10:16)
--- NOTE | 2020-12-16 11:58 | P.PN_ITS ---
Subjective Subjective Date Patient Seen: 12/16/20 Time Patient Seen: 11:58 Interval history: The patient is a gentleman with a spontaneous pneumothorax. Chest tube was placed and he has been on continuous suction at 20 cm of water. No chest pain. Doing a great job with deep breathing. He is a bit anxious about possible surgery. No GI complaints. Never used inhalers. Is tolerating his nicotine patch. Actually requested that he get another because the order had been stopped for some reason inadvertently. He is concerned about elevated cholesterol and re questing a dietary consult. He knows he eats a poor diet he says. Exam Vital Signs (past 8 hours): - 12/16/20 04:26 12/16/20 08:00 12/16/20 10:03 Temperature 98.2 F 97.6 F Pulse Rate 55 L 62 Respiratory Rate 20 18 Blood Pressure 152/92 H 123/78 Pulse Oximetry 98 97 98 Oxygen Delivery Method Room Air Oxygen Flow Rate 0 Narrative Exam Narrative: No apparent distress. Lungs good effort. Equal breath sounds. Some wheezing in the bases is noted on deep inspiration. Heart regular rate and rhythm without murmur gallop. Chest tube as a continuous air leak. Objective Labs Result Diagrams: 12/16/20 05:05 12/13/20 12:35 Labs: Laboratory Results - last 24 hr 12/16/20 05:05 WBC 13.5 H RBC 4.48 L Hgb 13.9 Hct 40.7 L MCV 90.9 MCH 31.0 MCHC 34.1 RDW 12.9 Plt Count 260 Neut % (Auto) 77.4 H Lymph % (Auto) 11.7 L [place] % (Auto) 6.1 Eos % (Auto) 4.3 H Baso % (Auto) 0.5 Neut # (Auto) 67705 H Lymph # (Auto) 1600 [place] # (Auto) 800 Eos # (Auto) 600 H Baso # (Auto) 100 PFSH Medical History Vapes nicotine containing substance Social History household members: family Smoking Status: Current every day smoker Assessment & Plan Assessment & Plan narrative: Doing well. Patient requesting dietary consult because he thinks he has elevated cholesterol. I have ordered labs and a d ietary consult. Increased to suction to 30 cm of water. Talked to him about the possible need for an operation. Told him it would we would probably give him more time to seal before that occurred. I talked to him about a thoracoscopic procedure which would be more likely that an open 1. All questions were answered. Quality VTE Deep Vein Thrombosis/Pulmonary Embolism Present on Admission: No
[2020-12-17] VITALS (7 sets, daily range): BP systolic 134–155; BP diastolic 80–93; PULSE 56–69; RESP 15–20; TEMP 36.3–37.2; O2SAT 96–99
[2020-12-17 05:30] LABS: Add Manual Diff / Slide Review NO; Basophils Absolute Auto 100 /uL (0-100); Basophils Percent Auto 0.8 % (0-2); Eosinophils Absolute Auto 700 /uL (0-450); Eosinophils Percent Auto 5.6 % (2-4); Hematocrit 40.4 % (41-53); Hemoglobin 13.6 g/dL (13.5-17.5); Lymphocytes Absolute Auto 1700 /uL (1100-4500); Lymphocytes Percent Auto 13.8 % (25-40); Mean Corpuscular HGB Conc 33.7 % (30-36); Mean Corpuscular Hemoglobin 30.8 PG (26-34); Mean Corpuscular Volume 91.4 fL (80-100); Monocytes Absolute Auto 1000 /uL (0-900); Neutrophils Absolute Auto 8900 /uL (1500-7000); Neutrophils Percent Auto 71.8 % (50-75); Platelet Count 267 X10^3/uL (150-400); Red Blood Cell Count 4.42 X10^6/uL (4.5-5.9); Red Cell Distribution Width 13.2 % (11.6-14.8); White Blood Cell Count 12.4 X10^3/uL (4.5-11.0)
[2020-12-17 05:56] LABS: Cholesterol 151 mg/dL (140-199); HDL Cholesterol 36 mg/dL (40-60); LDL Cholesterol Calculated 92 mg/dL (<100); Triglycerides 115 mg/dL (35-150)
[2020-12-17] MEDS: ACETAMINOPHEN 325 MG TABLET 650 MG PO ×3 (06:12→18:04)
[2020-12-17] MEDS: KETOROLAC 30 MG/ML VIAL IV ×3 (06:31→20:37)
--- NOTE | 2020-12-17 07:03 | DI.RAD.S_ITS ---
PROCEDURE: XR CHEST 1V INDICATIONS: f/u R-sided pneumothorax w chest tube.On 30 cm H2O suction TECHNIQUE: One view of the chest was acquired. COMPARISON: [facility], CR, XR CHEST 1V, 12/16/2020, 5:59. [facility], CR, XR CHEST 1V, 12/15/2020, 14:21. FINDINGS: Surgical changes and devices: Chest tube on the right, stable position. Lungs and pleura: Lungs are clear. No pleural effusions or pneumothorax. Mediastinum: Mediastinal contours appear normal. Heart size is normal. Bones and chest wall: No suspicious bony lesions. Overlying soft tissues appear unremarkable. IMPRESSION: No recurrent pneumothorax, and there is a very small residual apical pneumothorax at the highest margin of the right apex, previously present, and measuring only 1 cm in maximal thickness. Dictated by: Naresh Gaona M.D. on 12/17/2020 at 8:00 Approved by: Naresh Gaona M.D. on 12/17/2020 at 8:01
[2020-12-17] MEDS: NICOTINE 14 PATCH 14 MG TOP (08:38)
[2020-12-17] MEDS: SENNOSIDES 8.6 MG TABLET 17.2 MG PO (08:38)
[2020-12-17] MEDS: ENOXAPARIN 40 MG/0.4 ML SYRINGE SUBCUT (08:39)
--- NOTE | 2020-12-17 12:16 | PM.PN.1 ---
Subjective Subjective Date Patient Seen: 12/17/20 Time Patient Seen: 11:31 Interval history: The patient is a gentleman with a chest tube in place. He feels well. Pain is controlled. Moving about the room well. No shortness of breath. No cough. Concerned about his blood pressure. Concerned about his lipids. Exam Vital Signs (past 8 hours): - 12/17/20 05:14 12/17/20 09:07 Temperature 97.6 F 97.4 F L Pulse Rate 58 L 65 Respiratory Rate 18 15 Blood Pressure 134/80 151/90 H Pulse Oximetry 98 96 Oxygen Delivery Method Room Air Oxygen Flow Rate 0 Narrative Exam Narrative: Lungs clear with good effort. Equal breath sounds. Heart regular rate and rhythm without murmur gallop. Chest tube is well taped and the dressing dry. Objective Labs Result Diagrams: 12/17/20 05:19 12/13/20 12:35 Labs: Laboratory Results - last 24 hr 12/17/20 12/17/20 05:19 05:19 WBC 12.4 H RBC 4.42 L Hgb 13.6 Hct 40.4 L MCV 91.4 MCH 30.8 MCHC 33.7 RDW 13.2 Plt Count 267 Neut % (Auto) 71.8 Lymph % (Auto) 13.8 L [place] % (Auto) 8.0 Eos % (Auto) 5.6 H Baso % (Auto) 0.8 Neut # (Auto) 8900 H Lymph # (Auto) 1700 [place] # (Auto) 1000 H Eos # (Auto) 700 H Baso # (Auto) 100 Triglycerides 115 Cholesterol 151 LDL Cholesterol, Calc 92 HDL Cholesterol 36 L PFSH Medical History Vapes nicotine containing substance Social History household members: family Smoking Status: Current every day smoker Assessment & Plan Assessment & Plan narrative: Patient doing well. Still has a persistent air leak however. Reviewed his lipid testing with him. He actually does not have elevated cholesterol. The only abnormality was a low HDL. Cholesterol triglycerides and LDL were all well within normal limits. Will continue suction. Repeat x-ray in the morning. Quality VTE Deep Vein Thrombosis/Pulmonary Embolism Present on Admission: No
--- NOTE | 2020-12-17 12:43 | CM.DPC ---
DCP Cont: Per Surgeon, pt's chest tube still has small leak but pt seems to be making progress and will continue suction and get repeat chest xray tomorrow Mon AM towards determining tube removal timeline. Pt has been independent in room and requiring nicotine patch. Plan: SW to follow tomorrow after chest xray towards determining if chest tube can be removed yet and plan of return home independently when medically stable. SW to follow for any further needs. SUE Sales
--- NOTE | 2020-12-17 21:51 | PC.NURSE ---
Pt had relatively uneventful evening. Independent in room HL LFA intact/patent. Med x 1 for discomfort at 2044 w/good relief. Call light w/in reach, pt calls appropriately for need. Continue w/plan of care.
[2020-12-18] VITALS (8 sets, daily range): BP systolic 133–160; BP diastolic 80–100; PULSE 60–88; RESP 16–19; TEMP 36.6–37.2; O2SAT 96–99
--- NOTE | 2020-12-18 01:15 | PC.NURSE ---
Addendum entered by Loida Lawrence R.N. 12/18/20 06:59: Pt's chest tube output total for shift was 10cc, serosanguineous Original Note: 2315 Received safe hand-off report. The patient is sitting up in bed with HOB elevated to 30 degrees. He has a left forearm PIV that is saline locked and will today, but is still patent and flushing. He is on room air with oxygen saturation at 98%. He has a chest tube in place that has a total drainage of just under 170cc, serosangiuneous with some white tissue in the tubing; tubing checked for kinks, suction constant with pressure set to 83. He states his pain is tolerable, declines needing any medication and declines his scheduled APAP. No s/sx of distress. Will continue to monitor.
[2020-12-18] MEDS: KETOROLAC 30 MG/ML VIAL IV (06:41)
--- NOTE | 2020-12-18 07:15 | DI.RAD.S_ITS ---
PROCEDURE: XR CHEST 1V INDICATIONS: f/u pneumothorax TECHNIQUE: One view of the chest was acquired. COMPARISON: [facility], , XR CHEST 1V, 12/17/2020, 7:39. FINDINGS: Surgical changes and devices: Right-sided chest tube is again seen. Lungs and pleura: Patient's known tiny right apical pneumothorax is again seen and is unchanged or minimally increased in size compared to previous study. No left-sided pneumothorax. No focal infiltrate or pleural effusion. Mediastinum: Mediastinal contours appear normal. Heart size is normal. Bones and chest wall: No suspicious bony lesions. Extensive subcutaneous emphysema along right lateral chest wall extending to right lower neck soft tissue is again seen. IMPRESSION: Patient's known right apical pneumothorax is unchanged or minimally enlarged in size compared to previous study. Dictated by: Jadiel Bishop M.D. on 12/18/2020 at 8:12 Approved by: Jadiel Bishop M.D. on 12/18/2020 at 8:13
[2020-12-18] MEDS: SENNOSIDES 8.6 MG TABLET 17.2 MG PO (08:48)
[2020-12-18] MEDS: NICOTINE 14 PATCH 14 MG TOP (08:49)
[2020-12-18] MEDS: ENOXAPARIN 40 MG/0.4 ML SYRINGE SUBCUT (08:49)
[2020-12-18] MEDS: ACETAMINOPHEN 325 MG TABLET 650 MG PO ×2 (10:57→18:11)
--- NOTE | 2020-12-18 11:50 | P.PN_ITS ---
Subjective Subjective Date Patient Seen: 12/18/20 Time Patient Seen: 11:50 Interval history: Patient is feeling okay. Minimal pain. Breathing fine. Eating well. No nausea or vomiting. Exam Vital Signs (past 8 hours): - 12/18/20 04:14 12/18/20 09:28 Temperature 98.6 F 97.8 F Pulse Rate 88 69 Respiratory Rate 18 16 Blood Pressure 144/91 H 157/83 H Pulse Oximetry 98 98 Oxygen Delivery Method Room Air Oxygen Flow Rate 0 Narrative Exam Narrative: Lungs are clear to auscultation. No rales or rhonchi. Heart regular rate and rhythm without murmur gallop. Objective Labs Result Diagrams: 12/17/20 05:19 12/13/20 12:35 [facility] Medical History Vapes nicotine containing substance Social History household members: family Smoking Status: Current every day smoker Assessment & Plan Assessment & Plan narrative: Reviewed patient's chest x-ray. The chest tube has migrated outward and the most distal hole is at the chest wall. This may be the source of the persistent air leak. I will clamp his chest tube in of his lung collapses will replace the tube. Patient to be NPO for right now. Quality VTE Deep Vein Thrombosis/Pulmonary Embolism Present on Admission: No
--- NOTE | 2020-12-18 12:00 | PC.NURSE ---
Day shift: Pt to NPO at this time per MD. Dr Gupta has also clamped chest tube at this time (1200). Pt understands he is to notify this real estate underwriter or next RN if any trouble breathing or chest pain. Pt is also to stay in bed for at least the next 2 hours. Chest x-ray to be performed in approx 2 hours per MD. Will continue to closely monitor Pt. He is on continuous O2 monitor at this time.
--- NOTE | 2020-12-18 13:44 | DIET.PN ---
Dietary Progress Note Assessment: Mr. Christopher is a 45-year-old man who presented tot he ER several days ago with chest pain. He is an active everyday smoker and vaper. He reports that he vapes on a regular basis. He was vaping Friday when he coughed hard and suddenly had a severe chest pain. In the ER he was found to have a large pneumothorax on the right, and a chest tube was placed, with reinflation of the lung. He interested in smoking cessation and request nutrition education for heart health and cholesterol. HT: 182.88cm WT: 64.9kg UBW: na BMI: 19.4 Labs: Chol: 151 LDL: 92 HDL: 36 Tr MNA: 12 Arian: 21 PO's: 75% Nutrition Diagnosis: Inadequate energy intake r/t low appetite aeb pt report lack of interest in food, low BMI, very thin appearance. Interventions: 1. Discussed heart healthy nutrition therapy. Provided handouts on sodium, cholesterol, fat intake and food list and sample meal plan. 2. Discussed eating plan while quitting smoking. Discussed behaviors and triggers with food. Diet Order: General EER: 2000cal (30cal/kg for low BMI); 85 g Pro (1.3g/kg) Monitoring/Evaluations: Weight, PO's
--- NOTE | 2020-12-18 13:52 | PC.NURSE ---
Day shift: Pt denies any chest pain or problems breathing at this time. Spo2 96% RA. Tube remains clamped. Pt does report having anxiety and some discomfort in his stomach. Will request ant-anxiety med from MD. Encouraged Pt to think calm thoughts and to breath normally. Pt also reports having anxiety prior to this hospital admission.
--- NOTE | 2020-12-18 14:00 | DI.RAD.S_ITS ---
PROCEDURE: XR CHEST 1V INDICATIONS: Follow-up after clamping chest tube TECHNIQUE: One view of the chest was acquired. COMPARISON: [facility], CR, XR CHEST 1V, 12/18/2020, 7:23. FINDINGS: Lungs and pleura: Right apical chest tube is unchanged in position. Considerably increased size of right pneumothorax. Left lung and pleural space are clear. Mediastinum: Mediastinal contours appear normal. Heart size is normal. Bones and chest wall: No suspicious bony lesions. Overlying soft tissues appear unremarkable. IMPRESSION: Right pneumothorax has increased considerably in size. Dictated by: Andre Tran M.D. on 12/18/2020 at 13:32 Approved by: Andre Tran M.D. on 12/18/2020 at 13:32
--- NOTE | 2020-12-18 14:43 | PC.NURSE ---
Day sift: Per Dr Gupta Pt is no longer NPO. Pt is also back on suction and chest tube is unclamped. also changed chest tube dressing. at approx 1430.
[2020-12-18] MEDS: LORazepam 1 MG TABLET PO (15:27)
[2020-12-18] MEDS: KETOROLAC 10 MG TABLET PO (15:27)
--- NOTE | 2020-12-18 21:43 | PC.NURSE ---
Pt independent in room. CT intact/patent serous drainage. Medicated w/ ativan & toredol @ 1530 w/ good results. HL intact/patent Satisfactory progress. Call light w/in reach, pt calls appropriately Continue w/ plan of care.
[2020-12-19] VITALS (8 sets, daily range): BP systolic 137–157; BP diastolic 81–95; PULSE 69–74; RESP 14–18; TEMP 36.6–37.6; O2SAT 97–99
[2020-12-19] MEDS: ACETAMINOPHEN 325 MG TABLET 650 MG PO ×3 (00:29→11:50)
--- NOTE | 2020-12-19 03:23 | PC.NURSE ---
0040: patient is alert and oriented. Breath sounds diminished but CTA and patient denies feeling SOB; on continuous oximetry. Chest tube to 30cm water suction with no evidence of leak. Chest tube dressing CDI. HRR. Denies nausea. BT present and abdomen is soft. Denies dysuria, frequency or urgency with urination. Independent with mobility but reminded patient to call for assistance with tubes and he verbalizes understanding. Wearing bilateral calf SCD's. States pain from chest tube is 2-3/10 and taking scheduled Tylenol; declines other pain medication at this time. Fall risk score is moderate but bed alarm not being used at this time.
--- NOTE | 2020-12-19 07:46 | DI.RAD.S_ITS ---
PROCEDURE: XR CHEST 1V INDICATIONS: follow up for pneumothorax TECHNIQUE: One view of the chest was acquired. COMPARISON: [facility], , XR CHEST 1V, 12/18/2020, 14:04. FINDINGS: Surgical changes and devices: Right apically oriented chest tube remains in place. Lungs and pleura: There is a small persistent right apical pneumothorax. Otherwise, there is been re-expansion of the right lung. No focal consolidations. No substantial pleural effusion seen. Left lung is clear. Mediastinum: Mediastinal contours appear normal. Heart size is normal. Bones and chest wall: No suspicious bony lesions. Overlying soft tissues appear unremarkable. Persistent right chest wall subcutaneous emphysema. IMPRESSION: Small residual right apical pneumothorax. Dictated by: Leo Jalloh M.D. on 12/19/2020 at 7:15 Approved by: Leo Jalloh M.D. on 12/19/2020 at 7:18
[2020-12-19] MEDS: ENOXAPARIN 40 MG/0.4 ML SYRINGE SUBCUT (09:08)
[2020-12-19] MEDS: LORazepam 1 MG TABLET PO ×2 (09:10→17:05)
[2020-12-19] MEDS: SODIUM CHLORIDE 0.9% FLUSH 10 ML IV (09:10)
[2020-12-19] MEDS: SENNOSIDES 8.6 MG TABLET 17.2 MG PO (09:10)
[2020-12-19] MEDS: NICOTINE 14 PATCH 14 MG TOP (09:10)
[2020-12-19] MEDS: KETOROLAC 10 MG TABLET PO ×2 (09:11→17:04)
--- NOTE | 2020-12-19 09:26 | DI.CT.S_ITS ---
PROCEDURE: CT CHEST WO CON INDICATIONS: pneumothorax, persistent leak from chest tube TECHNIQUE: Noncontrast 5 mm thick sections acquired from the pulmonary apices to the posterior costophrenic angles. 1 mm lung window, 5 mm thick coronal and sagittal and 7 mm axial MIP reformats were then acquired. For radiation dose reduction, the following was used: automated exposure control, adjustment of mA and/or kV according to patient size. COMPARISON: [facility], CR, XR CHEST 1V, 12/18/2020, 14:04. [facility], CR, XR CHEST 1V, 12/19/2020, 5:09. FINDINGS: Image quality: Excellent. Lungs and pleura: A right-sided chest tube is seen, the tip is within anterior aspect of right upper lung field. Significant bullous disease in bilateral upper lobes are seen more prominent on the right side. There is a small right apical and anterior pneumothorax with partial collapse of right upper lobe. Right-sided pneumothorax is seen extending along anterior aspect of right hemithorax to right lung base. There is right basilar dependent atelectasis/small infiltrates posteriorly. No significant pleural effusion. Minimal left basilar dependent atelectasis is seen. No acute left-sided airspace opacity or pneumothorax. Central and peripheral airways are patent and normal in caliber. Mediastinum: Heart size is normal. No pericardial effusion. No mediastinal adenopathy by size criteria. Thoracic aorta and central pulmonary arteries are normal in size. Esophagus is normal in caliber. No hiatal hernia. Bones and chest wall: Significant subcutaneous emphysema along anterior and lateral right chest wall extending to right axilla is seen. Air is seen extending to right lower neck soft tissue. No suspicious bony lesions. No vertebral body compression fractures. No axillary or supraclavicular adenopathy by size criteria. Thyroid gland is within normal limits. Abdomen: Visualized upper abdominal solid organs and bowel loops appear normal in the absence of contrast. IMPRESSION: 1. Small right anterior and apically pneumothorax as described above with partial collapse of right lung. Right-sided chest tube is seen in anterior aspect of right upper lung. 2. 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 Small infiltrate/atelectasis in posterior aspect of right lung base. Left basilar atelectasis. No left-sided pneumothorax. Airway is patent. 3. Extensive right-sided subcutaneous emphysema as above. No mediastinal or hilar lymphadenopathy. Dictated by: Jadiel Bishop M.D. on 12/19/2020 at 9:54 Approved by: Jadiel Bishop M.D. on 12/19/2020 at 10:01
--- NOTE | 2020-12-19 12:45 | PM.DS.1 ---
History of Present Illness History of Present Illness Chief complaint: Feels like someone is standing on chest Narrative: This is a 45-year-old man who presented tot he ER with chest pain last night. He is an active everyday smoker and vaper. He says the pain started on Friday. He reports that he vapes on a regular basis he was vaping Friday around 1:00 p.m. when he coughed hard and suddenly had a severe chest pain. He reports that he was able to calm himself down he went to sleep with his hands on his sternum and woke up still with pain at which point he decided to come to the ER for evaluation. In the ER he was found to have a large pneumothorax on the right, and a chest tube was placed, with reinflation of the lung. Overnight, he has been weaned off of oxygen, and has required minimal pain medication. He feels like his breathing is much better, and his chest pain has basically resolved, with the exception of pain at the chest tube insertion site. He has a nicotine patch, and denies any desire for cigarette at this point ROS: Constitutional: Denies chills, Denies fever(s), Denies lethargy and Denies weakness Cardiovascular: Reports as per HPI, Reports improved chest pain; reports pain at chest tube site, Denies syncope, Denies dyspnea and Denies dyspnea on exertion Respiratory: Denies cough, Denies dyspnea, Denies dyspnea on exertion and Denies wheezing Gastrointestinal: Denies abdominal pain, Denies change in bowel habits, Denies diarrhea, Denies nausea and Denies vomiting Musculoskeletal: Denies back pain, Denies myalgias and Denies arthralgias Skin/Breast: Denies pruritus, Denies erythema, Denies rash and Denies wounds Neurologic: Denies syncope and Denies weakness Allergic/Immunologic: Denies wheezing PE: GENERAL: Alert, comfortable. Appears stated age. Answers questions promptly and appropriately. Vital signs noted. HENT: Normocephalic, atraumatic. Hearing intact. EYES: Conjunctiva pink, sclera white, no periorbital swelling. CARDIOVASCULAR: Regular rate. No pedal edema. RESPIRATORY: Non-tachypneic, breathing comfortably on room air. Chest tube in place and secure without kinks, no sign of a leak, minimal tidaling on inspiration with suction off. GASTROINTESTINAL: Abdomen soft and non-distended GENITALURINARY: No flank tenderness. MUSCULOSKELETAL: Equal tone and mass bilaterally. SKIN: Warm, dry, soft, appropriate color for ethnicity. No other lesions, rashes, or wounds. NEURO: Alert and Oriented X 3. No gross sensory deficits, or cognitive issues. PSYCH: Appropriate affect and mood. Discharge Providers Provider Date of admission: 12/13/20 13:54 Discharge Date: 12/19/20 Consults: 12/13/20 14:01 Consult to Discharge Planning Routine Comment: 12/16/20 11:45 Consult to Dietitian, Adult Routine Comment: Reason For Exam: Patient requests diet to lower cholesterol Discharge provider: Tanna Lambert MD Summary Hospital Course Discharge Diagnosis: spontaneous pneumothorax, persistent leak from chest tube on suction x 1 week Hospital Course: This is a 45-year-old man who was admitted on the with 1 day of chest pain, and found to have a spontaneous pneumothorax. Chest tube was placed in the ER by the ED physician. Chest tube was kept to suction for about 36 hours without evidence of a leak, and was placed to water seal with reaccumulation of the pneumothorax. A leak was noted once the chest tube was placed back to suction, and after interrogating, and resecuring the chest tube, the leak persisted. The patient was sent today for a chest CT, was found to have multiple blebs at bilateral apices. This was deemed beyond the scope of management for general surgery at [facility]. At this point the patient will need to be transferred for thoracic surgery evaluation and intervention. Status at Discharge Cognitive/behavioral status at discharge: oriented Functional status at discharge: independent ambulation Overall status at discharge: patient is progressing back to baseline Time Spent with Patient Time spent: Greater than 30 minutes Time spent discussing smoking cessation with patient: more than 10 minutes Exam Vital Signs (past 8 hours): - 12/19/20 05:19 12/19/20 07:57 12/19/20 09:11 Temperature 98.2 F 98.0 F 98.6 F Pulse Rate 70 69 Respiratory Rate 16 16 Blood Pressure 152/92 H 142/92 H Pulse Oximetry 99 97 12/19/20 09:41 12/19/20 10:13 12/19/20 11:50 Temperature 97.8 F 97.8 F 99.7 F H Pulse Rate 71 Respiratory Rate 14 Blood Pressure 137/81 Pulse Oximetry 97 12/19/20 11:53 Temperature 99.7 F H Pulse Rate 74 Respiratory Rate 15 Blood Pressure 145/93 H Pulse Oximetry 97 Oxygen Delivery Method Room Air Oxygen Flow Rate 0 Narrative Exam Narrative: GENERAL: Alert, comfortable. Answers questions promptly and appropriately. Vital signs noted. HENT: Normocephalic, atraumatic. Hearing intact. EYES: Conjunctiva pink, sclera white, no periorbital swelling. CARDIOVASCULAR: Regular rate. No pedal edema. RESPIRATORY: Non-tachypneic, breathing comfortably on room air. Chest tube in place and tidaling. Dressings intact. No evidence of malposition or dislodgement. Evidence of persistent leak noted on the chest tube box. GASTROINTESTINAL: Abdomen soft and non-distended GENITALURINARY: No flank tenderness. MUSCULOSKELETAL: Equal tone and mass bilaterally. SKIN: Warm, dry, soft, appropriate color for ethnicity. No other lesions, rashes, or wounds. NEURO: Alert and Oriented X 3. No gross sensory deficits, or cognitive issues. PSYCH: Appropriate affect and mood. Objective Imaging CT scan - chest: My impression: Moderate bleb disease on both sides at the apices. Discussed with Dr. Gupta who felt this was not amenable to management by General surgery at this hospital. Radiologist's impression: [address] [id number] Scan ReportSigned Patient: Bob Christopher [facility]#: [id number]: 1975Acct:[id number]/Sex: 45 / MDate of Service: 12/19/20Loc: [id number] Number: [id number] Procedure: CT chest wo con Ordering Provider: Tanna Lambert MD PROCEDURE: CT CHEST WO CON INDICATIONS: pneumothorax, persistent leak from chest tube TECHNIQUE: Noncontrast 5 mm thick sections acquired from the pulmonary apices to the posterior costophrenic angles. 1 mm lung window, 5 mm thick coronal and sagittal and 7 mm axial MIP reformats were then acquired. For radiation dose reduction, the following was used: automated exposure control, adjustment of mA and/or kV according to patient size. COMPARISON: [facility], CR, XR CHEST 1V, 12/18/2020, 14:04. [facility], CR, XR CHEST 1V, 12/19/2020, 5:09. FINDINGS: Image quality: Excellent. Lungs and pleura: A right-sided chest tube is seen, the tip is within anterior aspect of right upper lung field. Significant bullous disease in bilateral upper lobes are seen more prominent on the right side. There is a small right apical and anterior pneumothorax with partial collapse of right upper lobe. Right-sided pneumothorax is seen extending along anterior aspect of right hemithorax to right lung base. There is right basilar dependent atelectasis/small infiltrates posteriorly. No significant pleural effusion. Minimal left basilar dependent atelectasis is seen. No acute left-sided airspace opacity or pneumothorax. Central and peripheral airways are patent and normal in caliber. Mediastinum: Heart size is normal. No pericardial effusion. No mediastinal adenopathy by size criteria. Thoracic aorta and central pulmonary arteries are normal in size. Esophagus is normal in caliber. No hiatal hernia. Bones and chest wall: Significant subcutaneous emphysema along anterior and lateral right chest wall extending to right axilla is seen. Air is seen extending to right lower neck soft tissue. No suspicious bony lesions. No vertebral body compression fractures. No axillary or supraclavicular adenopathy by size criteria. Thyroid gland is within normal limits. Abdomen: Visualized upper abdominal solid organs and bowel loops appear normal in the absence of contrast. IMPRESSION: 1. Small right anterior and apically pneumothorax as described above with partial collapse of right lung. Right-sided chest tube is seen in anterior aspect of right upper lung. 2. 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 Small infiltrate/atelectasis in posterior aspect of right lung base. Left basilar atelectasis. No left-sided pneumothorax. Airway is patent. 3. Extensive right-sided subcutaneous emphysema as above. No mediastinal or hilar lymphadenopathy. Dictated by: Jadiel Bishop M.D. on 12/19/2020 at 9:54 Approved by: Jadiel Bishop M.D. on 12/19/2020 at 10:01 Labs Result Diagrams: 12/17/20 05:19 12/13/20 12:35 [facility] Medical History Vapes nicotine containing substance Social History household members: family Smoking Status: Current every day smoker Discharge Assessment & Plan Assessment and Plan Assessment: Spontaneous pneumothorax not resolving with chest tube to suction. Chest CT findings consistent with moderate apical bleb disease bilaterally, beyond the scope of management at this hospital. Plan of Treatment: Transfer for thoracic surgery evaluation and treatment. Discharge Plan Discharge Plan Disposition: [facility] Quality VTE Deep Vein Thrombosis/Pulmonary Embolism Present on Admission: No
--- NOTE | 2020-12-19 16:53 | PC.NURSE ---
Addendum entered by Hanna Ley R.N. 12/19/20 17:55: [facility] here to transport to [facility]. Report called earlier, Pt transfered in stable condition. Original Note: Pt watching TV. Presents anxious, unsure of when he'll be transfered., Covid swab sent to lab. Chest tube intact. SpO2 96% RA HL LFA intact/patent. Awaiting transportation to [facility]
[2020-12-19 17:17] LABS: COVID19 -Nasal RAPID Negative (Negative)
== END 2020-12-19 17:57 | disposition short-term general hospital (02) | DRG 143 ==
LOC: ED 13:53 → AC 13:55
PROVIDERS: Specialist; Admitting Provider Surgery; Emergency Provider Emergency Medicine; Referring Provider Emergency Medicine; Visit Provider Surgery
DX: J93.83 Other pneumothorax (principal); J43.9 Emphysema, unspecified; F17.210 Nicotine dependence, cigarettes, uncomplicated; Z20.822 Contact with and (suspected) exposure to COVID-19
CPT/HCPCS: 36415; 71045; 71250; 80053; 80061; 82550; 82553; 83690; 84484; 85025; 85610; 85730; 87635; 93005; 94762; 96361; 96374; 99222; 99231; 99232; 99238; 99285; 99291; 99406; C9803; J1170; J1650; J1885; J2704